=== PATIENT | female | born 2000 | race Two or more races ===

== ENCOUNTER 2024-12-20 05:41 | Inpatient (IN) | payer OTHER ==
[~2024-12-20] VITALS: Ht 160 cm; Wt 2.7 kg
[2024-12-20] MEDS ORDERED: CEFAZOLIN SODIUM 1,000 MG VIAL IV SCH ×2 (06:00→12:00)
[2024-12-20] MEDS ORDERED: RINGERS SOLUTION,LACTATED 1,000 ML IV SCH (06:00)
[2024-12-20 06:12] VITALS: BP 105/68; O2SAT 96
[2024-12-20] MEDS ORDERED: PRENATA CHEWAB1 EACH PO (07:24)
[2024-12-20] MEDS ORDERED: INTEGRA PLUS C1 EACH PO (07:24)
[2024-12-20] MEDS ORDERED: NIFEDIPINE20 MG PO (07:25)
[2024-12-20] MEDS ORDERED: ERYTHROMYCIN BASE OPHT 1GM EACH TUBE OP ONE (08:15)
[2024-12-20] MEDS ORDERED: OXYTOCIN 10 UNITS/ML VIAL IV NR (08:15)
[2024-12-20] MEDS ORDERED: PROMETHAZINE HCL 25 MG/ML AMPUL IV PRN (09:45)
[2024-12-20] MEDS ORDERED: KETOROLAC TROMETHAMINE 30 MG VIAL IV PRN (09:45)
[2024-12-20] MEDS ORDERED: MORPHINE SULFATE 4 MG/ML VIAL IV ONE ×2 (10:10→11:30)
[2024-12-20 12:38] VITALS: BP 110/70
[2024-12-20 13:15] VITALS: BP 115/71
[2024-12-20 16:00] VITALS: BP 94/60
[2024-12-20] MEDS ORDERED: ALBUTEROL SULFATE 3 ML/2.5 MG AMPUL.NEB IH SCH (18:00)
[2024-12-21 00:32] VITALS: BP 105/63
[2024-12-21 08:00] VITALS: BP 102/65
[2024-12-21 08:14] LABS: BASO % 0.2 % (0.1-1.2); EOS # 0.03 (0.04-0.54); EOS % 0.2 % (0.7-7.0); LYMPH # 1.74 (1.18-3.74); LYMPH % 13.1 % (19.3-53.1); MEAN PLATELET VOLUME 10.40 fl (9.4-12.4); MONO # 0.63 (0.24-0.82); MONO % 4.8 % (4.7-12.5); NEUT # 10.71 (1.56-6.13); NEUT % 80.9 % (34.0-71.1); RED CELL DISTRIBUTION WIDTH 13.5 % (11.6-14.4)
[2024-12-21] MEDS ORDERED: NAPROXEN 500 MG TABLET PO PRN (09:45)
[2024-12-21] MEDS ORDERED: IRON FUM,PS/FOLIC/BCOMP,C NO.9 1 CAP CAPSULE PO STA (12:43)
[2024-12-21 13:48] VITALS: BP 92/62
[2024-12-21] MEDS ORDERED: IRON FUM,PS/FOLIC/BCOMP,C NO.9 1 CAP CAPSULE PO SCH (17:00)
[2024-12-21 17:24] VITALS: BP 110/70
[2024-12-22] VITALS: BP 104/67
[2024-12-22 07:35] LABS: BASO % 0.3 % (0.1-1.2); EOS # 0.11 (0.04-0.54); EOS % 0.8 % (0.7-7.0); LYMPH # 1.75 (1.18-3.74); LYMPH % 12.5 % (19.3-53.1); MEAN PLATELET VOLUME 10.20 fl (9.4-12.4); MONO # 0.78 (0.24-0.82); MONO % 5.6 % (4.7-12.5); NEUT # 11.16 (1.56-6.13); NEUT % 79.8 % (34.0-71.1); RED CELL DISTRIBUTION WIDTH 13.5 % (11.6-14.4)
[2024-12-22 08:17] VITALS: BP 99/70
[2024-12-22] MEDS ORDERED: IRON FUM,PS/FOLIC/BCOMP,C NO.9 1 CAP CAPSULE PO SCH (11:52)
== END 2024-12-22 13:25 | disposition home or self-care (01) | DRG 788 ==
LOC: OB/GYN 05:41 → LDR 05:41 → O/R 08:00 → OB/GYN 12:42
PROVIDERS: ADMIT Specialist; ATTEND Specialist
PROC: 4A1HXCZ Monitoring of Products of Conception, Cardiac Rate, External Approach (ICD-10-PCS; 2024-12-20)
PROC: 3E0F7GC Introduction of Other Therapeutic Substance into Respiratory Tract, Via Natural or Artificial Opening (ICD-10-PCS; 2024-12-20)
PROC: 10D00Z1 Extraction of Products of Conception, Low, Open Approach (ICD-10-PCS; principal; 2024-12-20 10:00)
DX: O32.2XX0 Maternal care for transverse and oblique lie, not applicable or unspecified (principal); O90.81 Anemia of the puerperium; O69.81X0 Labor and delivery complicated by cord around neck, without compression, not applicable or unspecified; Z37.0 Single live birth; Z3A.37 37 weeks gestation of pregnancy